=== PATIENT | male | born 1975 | race Caucasian/White ===

== ENCOUNTER → 2018-06-08 | Outpatient (CLI) | payer OTHER | LOC: MHCPAIN 08:28 | DX: G89.29 Other chronic pain (principal); M79.2 Neuralgia and neuritis, unspecified; G56.40 Causalgia of unspecified upper limb | CPT/HCPCS: G0463 ==

== ENCOUNTER → 2018-08-03 | Outpatient (CLI) | payer OTHER | LOC: MHCPAIN 08:15 | DX: G89.29 Other chronic pain (principal); M79.2 Neuralgia and neuritis, unspecified; G56.43 Causalgia of bilateral upper limbs | CPT/HCPCS: G0463 ==

== ENCOUNTER → 2018-08-10 | Outpatient (CLI) | payer OTHER | LOC: MHCPAIN 11:00 | DX: M79.2 Neuralgia and neuritis, unspecified (principal) | CPT/HCPCS: Q9967 ==